=== PATIENT | male | born 1980 | race Caucasian/White ===

== ENCOUNTER 2020-08-26 18:45 | Emergency (ER) | payer SELFPAY ==
[~2020-08-26] VITALS: Ht 160 cm; Wt 65.0 kg
--- NOTE | 2020-08-26 19:42 | PHYS DOC ---
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 Pt states he has an infected tooth that is "rotting out." Pt admits he has not seen a dentist in many years. The pain is rated at 9/10 in his tooth and it radiates to his jaw. Cold air makes the pain worse and nothing makes it better. Pt denies any fevers. Pt does have a history of meth abuse and states he is 60 days clean and living in a rehab facility. Review of Systems: Review of Systems: Constitutional: Denies fever or chills Eyes: Denies redness or eye pain HENT: Denies nasal congestion or sore throat; reports dental pain and swelling Respiratory: Denies cough or shortness of breath Cardiovascular: Denies chest pain or palpitations GI: Denies abdominal pain, nausea, or vomiting : Denies dysuria or hematuria Musculoskeletal: Denies back pain or joint pain Integument: Denies rash or skin lesions Neurologic: Denies headache, focal weakness or sensory changes Complete systems were reviewed and found to be within normal limits, except as documented in this note. Physical Exam: PE: Constitutional: Well developed, well nourished, no acute distress, non-toxic appearance HENT: Normocephalic, atraumatic, poor dentition throughout, severe dental caries noted, no drainable abscess noted Eyes: Conjunctiva normal, no discharge Neck: Normal range of motion, supple, submandibular lymph nodes mildly enlarged and tender to palpation bilaterally, left sided mandibular swelling with associated tenderness Lungs & Thorax: No respiratory distress, equal chest rise and fall Skin: Warm, dry, no erythema, no rash Extremities: No tenderness, ROM intact, no edema Neurologic: Alert and oriented X 3, no focal deficits noted Psychologic: Affect normal, judgment normal Current Patient Data: Vital Signs: Vital Signs Date Time Temp Pulse Resp B/P (MAP) Pulse Ox O2 Delivery O2 Flow Rate FiO2 08/26/20 19:19 97.9 71 16 126/85 (99) 98 Room Air 97.9 EKG: EKG: [] Radiology/Procedures: Radiology/Procedures: [] Course & Med Decision Making: Course & Med Decision Making 40 yo male presents with dental pain and jaw swelling for the past week. Poor dentition throughout with severe dental caries noted. Submandibular lymph nodes mildly enlarged and tender bilaterally. Symptomatic treatment and antibiotics provided. Pt instructed to follow up with a dentist as soon as possible from a resource list provided. Patient stable for discharge with outpatient follow-up with PCP/dentist. Discussed findings and plan with patient, who acknowledges understanding and agreement. Radha Disclaimer: Radha Disclaimer: This electronic medical record was generated, in whole or in part, using a voice recognition dictation system. Departure Departure Impression: Primary Impression: Dental caries Additional Impressions: Poor dentition Mandibular swelling Disposition: HOME SELF CARE/HOMELESS Condition: STABLE Patient Instructions: Dental Caries, Dental Pain, [id number] Additional Instructions: Follow up with dentist as soon as possible (use dental resource sheet provided). Use mouth rinse as instructed. Take Ibuprofen or Tylenol for pain as needed. Continue taking antibiotics until the end of the course. Scripts Prednisone (PREDNISONE) 20 Mg Tablet 2 TAB PO DAILY, #8 TAB Start prescription tomorrow, Thursday08/27/20 Prov: DIMAS WASHINGTON DO 08/26/20 Chlorhexidine Gluconate (PERIDEX) 15 Ml Mouthwash 15 ML PO BID, #473 ML 0 Refills Prov: DIMAS WASHINGTON DO 08/26/20 Amoxicillin/Potassium Clav (AUGMENTIN 875-125 TABLET) 1 Each Tablet 1 TAB PO BID, #14 TAB Prov: DIMAS WASHINGTON DO 08/26/20 DIMAS WASHINGTON DO Aug 26, 2020 19:42
[2020-08-26] MEDS ORDERED: KETOROLAC 30 MG/ML VIAL. ONE (19:51)
[2020-08-26] MEDS ORDERED: DEXAMETHASONE 4 MG TABLET ONE (19:51)
[2020-08-26] MEDS ORDERED: KETOROLAC 30 MG/ML VIAL. IM ONE (20:00)
[2020-08-26] MEDS ORDERED: DEXAMETHASONE 4 MG TABLET PO ONE (20:00)
[2020-08-26] MEDS ORDERED: AMOXICILLIN/K CLAV 875/125MG TABLET. PO ONE (20:00)
[2020-08-26] MEDS ORDERED: PRED20TA PO (20:10)
[2020-08-26] MEDS ORDERED: CHLO15MO2 PO (20:10)
[2020-08-26] MEDS ORDERED: AMOX1TAB61 PO (20:10)
[2020-08-26 20:24] VITALS: BP 128/84
== END 2020-08-26 20:24 | disposition home or self-care (01) ==
LOC: ER 18:45
DX: K02.9 Dental caries, unspecified (principal); K00.7 Teething syndrome; M27.8 Other specified diseases of jaws; F20.9 Schizophrenia, unspecified; F31.9 Bipolar disorder, unspecified; F43.10 Post-traumatic stress disorder, unspecified; F90.9 Attention-deficit hyperactivity disorder, unspecified type; F17.200 Nicotine dependence, unspecified, uncomplicated
CPT/HCPCS: 96372; 99283; J1885